=== PATIENT | female | born 1940 | race Caucasian/White ===

== ENCOUNTER 2020-11-02 22:19 | Inpatient (IN) | payer OTHER ==
[~2020-11-02] VITALS: Ht 152.4 cm; Wt 94.2 kg
[2020-11-02] MEDS ORDERED: IPRATROPIUM BROM 0.5 MG/2.5ML INH SOL NEB ONE (23:00)
[2020-11-02] MEDS ORDERED: ALBUTEROL SULF 2.5 MG/0.5ML(0.5%) NEB SOLN NEB ONE (23:00)
[2020-11-02] MEDS ORDERED: DexAMETHasone SOD PHOS 10MG/1ML VIAL INJ IV ONE (23:00)
[2020-11-02 23:38] LABS: Basophils # (auto) 0 10 ^3/uL (0-0.2); Basophils % (auto) 0.4 % (0.0-2.0); Eosinophils # (auto) 0 10 ^3/uL (0-0.8); Eosinophils % (auto) 0.4 % (0.0-7.0); Hematocrit 35.7 % (36.0-46.0); Hemoglobin 11.9 g/dL (12.2-16.2); Lymphocytes # (auto) 0.9 10 ^3/uL (0.4-5.4); Lymphocytes % (auto) 31.4 % (10.0-50.0); Mean Corpuscular Hemoglobin 28.2 pg (28.0-32.0); Mean Corpuscular Hgb Conc. 33.5 g/dL (32.0-36.0); Mean Corpuscular Volume 84.2 fL (80.0-100.0); Monocytes # (auto) 0.4 10 ^3/uL (0-1.3); Monocytes % (auto) 15.5 % (0.0-12.0); Neutrophils # (auto) 1.5 10 ^3/uL (1.6-8.6); Neutrophils % (auto) 52.3 % (37.0-80.0); Nucleated Red Blood Cells % 0.1 %; Platelet Count (auto) 107 10^3/uL (140-450); Red Blood Cells 4.23 10^6/uL (4.0-5.20); Red Cell Distribution Width 13.4 % (11.8-14.3); White Blood Cell 2.8 10^3/uL (4.4-10.8)
[2020-11-02 23:54] LABS: Albumin 3.5 g/dL (3.4-5.0); Anion Gap 5 (5-15); Calcium 8.4 mg/dL (8.5-10.1); Carbon Dioxide 29 mmol/L (21-32); Chloride 107 mmol/L (98-107); Glucose 113 mg/dL (74-106); Potassium 3.1 mmol/L (3.5-5.1); Sodium 141 mmol/L (136-145)
[2020-11-03 00:03] LABS: Alanine Aminotransferase 23 U/L (13-56); Alkaline Phosphatase 58 U/L (45-117); Aspartate Aminotransferase 25 U/L (15-37); Bilirubin, Total 0.5 mg/dL (0.2-1.0); GFR African American 78 mL/min; GFR Non-African American 64 mL/min; Total Protein 7.3 g/dL (6.4-8.2)
[2020-11-03 00:15] LABS: BUN/Creatinine Ratio 21.1; Blood Urea Nitrogen 19 mg/dL (7-18)
[2020-11-03] MEDS ORDERED: HYDROcodone-ACET 5/325MG TAB PO ONE (01:15)
[2020-11-03] MEDS ORDERED: IOHEXOL 300 MG/ML 100ML BOTTLE IJ ONE (01:41)
[2020-11-03] MEDS ORDERED: hydrALAZINE HCL 20 MG/ML VL IV ONE (03:00)
[2020-11-03] MEDS ORDERED: AZITHROMYCIN 500MG/ 250ML 250 ML IV ONE (03:15)
[2020-11-03] MEDS: levoFLOXacin 500MG 100 ML IV ONE ×2 (03:18→03:37)
[2020-11-03] MEDS ORDERED: POTASSIUM CHL 20 Meq TABLET PO ONE (04:30)
[2020-11-03] MEDS ORDERED: MORPHINE SULF INJ 2 MG/ML SYRINGE 1ML IV PRN (04:30)
[2020-11-03] MEDS ORDERED: hydrALAZINE HCL 20 MG/ML VL IV PRN (04:30)
[2020-11-03] MEDS ORDERED: DOCUSATE SOD 100 MG CAP PO PRN (04:30)
[2020-11-03] MEDS ORDERED: ACETAMINOPHEN 325 MG TAB PO PRN (04:30)
[2020-11-03] MEDS ORDERED: ONDANSETRON HCL 4 MG/2 ML VIAL IV PRN (04:30)
[2020-11-03] MEDS ORDERED: NITROGLYCERIN 0.4 MG SL TAB SL PRN (04:30)
[2020-11-03] MEDS: HYDROcodone-ACET 5/325MG TAB PO PRN (06:50)
[2020-11-03 07:11] LABS: Potassium 3.5 mmol/L (3.5-5.1)
[2020-11-03 07:16] LABS: BUN/Creatinine Ratio 18.2; Calcium 9.1 mg/dL (8.5-10.1)
[2020-11-03 07:17] LABS: Bilirubin, Total 0.5 mg/dL (0.2-1.0)
[2020-11-03 07:38] LABS: Hemoglobin 12.7 g/dL (12.2-16.2)
[2020-11-03 07:42] LABS: Mean Corpuscular Hgb Conc. 33.5 g/dL (32.0-36.0); Mean Corpuscular Volume 83.7 fL (80.0-100.0); Platelet Count (auto) 114 10^3/uL (140-450); Red Blood Cells 4.54 10^6/uL (4.0-5.20); Red Cell Distribution Width 13.5 % (11.8-14.3)
[2020-11-03 07:56] LABS: White Blood Cell 1.4 10^3/uL (4.4-10.8)
[2020-11-03 07:58] LABS: Basophils % (manual) 0 (0.0-2.0); Blast Cells 0; Eosinophils % (manual) 0 (0-7); Myelocytes % 0; Promyelocytes % 0
[2020-11-03] MEDS: DOXYCYCLINE 100MG/250ML 250 ML IV SCH ×2 (09:25→17:25)
[2020-11-03] MEDS: FAMOTIDINE (10MG/ML) 2ML VL IV SCH (10:06)
[2020-11-03] MEDS: MULTIPLE VITAMIN TAB PO SCH (10:06)
[2020-11-03] MEDS: DexAMETHasone SOD PHOS 10MG/1ML VIAL INJ IV SCH (10:06)
[2020-11-03] MEDS: ZINC SULFATE 220mg CAP or TAB PO SCH (10:06)
[2020-11-03] MEDS: amLODIPine BESYLATE 5 MG TAB PO SCH (10:06)
[2020-11-03] MEDS: ENOXAPARIN SOD 40 MG/0.4 ML SYRINGE SC SCH (10:07)
[2020-11-03] MEDS: ASCORBIC ACID 500 MG TAB PO SCH ×2 (10:07→21:28)
[2020-11-03] MEDS: HYDROcodone-ACET 10/325MG TAB PO PRN ×2 (12:35→22:12)
[2020-11-03 13:20] LABS: Band Neutrophils % (manual) 1; Lymphocytes % (manual) 28 (10.0-50.0); Metamyelocytes % 1; Monocytes % (manual) 3 (0-12); Reactive Lymphocytes 1
[2020-11-03 14:41] VITALS: BP 135/70
[2020-11-03 16:05] VITALS: BP 135/70
[2020-11-04] VITALS: BP 141/70
[2020-11-04] MEDS: DOXYCYCLINE 100MG/250ML 250 ML IV SCH ×2 (04:36→17:08)
[2020-11-04 06:29] LABS: Basophils # (auto) 0 10 ^3/uL (0-0.2); Basophils % (auto) 0.1 % (0.0-2.0); Eosinophils # (auto) 0 10 ^3/uL (0-0.8); Hematocrit 38.1 % (36.0-46.0); Hemoglobin 12.8 g/dL (12.2-16.2); Lymphocytes # (auto) 0.6 10 ^3/uL (0.4-5.4); Lymphocytes % (auto) 18.1 % (10.0-50.0); Mean Corpuscular Hemoglobin 28.2 pg (28.0-32.0); Mean Corpuscular Hgb Conc. 33.6 g/dL (32.0-36.0); Monocytes # (auto) 0.3 10 ^3/uL (0-1.3); Monocytes % (auto) 8.7 % (0.0-12.0); Neutrophils # (auto) 2.6 10 ^3/uL (1.6-8.6); Neutrophils % (auto) 73.1 % (37.0-80.0); Nucleated Red Blood Cells % 0.1 %; Platelet Count (auto) 135 10^3/uL (140-450); Red Blood Cells 4.53 10^6/uL (4.0-5.20); Red Cell Distribution Width 13.8 % (11.8-14.3); White Blood Cell 3.6 10^3/uL (4.4-10.8)
[2020-11-04 06:44] LABS: Potassium 3.4 mmol/L (3.5-5.1)
[2020-11-04 06:55] LABS: Albumin 3.6 g/dL (3.4-5.0); BUN/Creatinine Ratio 15.9; Bilirubin, Total 0.5 mg/dL (0.2-1.0); Total Protein 7.8 g/dL (6.4-8.2)
[2020-11-04 08:00] VITALS: BP 142/76
[2020-11-04] MEDS: DexAMETHasone SOD PHOS 10MG/1ML VIAL INJ IV SCH (10:17)
[2020-11-04] MEDS: MULTIPLE VITAMIN TAB PO SCH (10:19)
[2020-11-04] MEDS: FAMOTIDINE (10MG/ML) 2ML VL IV SCH (10:19)
[2020-11-04] MEDS: ZINC SULFATE 220mg CAP or TAB PO SCH (10:19)
[2020-11-04] MEDS: ASCORBIC ACID 500 MG TAB PO SCH ×2 (10:20→21:44)
[2020-11-04] MEDS: amLODIPine BESYLATE 5 MG TAB PO SCH (10:20)
[2020-11-04] MEDS: CHOLECALCIFEROL (VITD3) 2,000 UNIT CAP/TAB PO SCH (10:20)
[2020-11-04] MEDS: ENOXAPARIN SOD 40 MG/0.4 ML SYRINGE SC SCH (10:21)
[2020-11-04] MEDS: HYDROcodone-ACET 10/325MG TAB PO PRN ×2 (12:40→21:00)
[2020-11-04 15:56] VITALS: BP 115/80
[2020-11-04] MEDS: ALBUTEROL SULF HFA 90MCG INH 200DOSE IN SCH (19:04)
[2020-11-05] MEDS: DOXYCYCLINE 100MG/250ML 250 ML IV SCH ×2 (04:38→16:30)
[2020-11-05 07:49] VITALS: BP 135/69
[2020-11-05 08:00] VITALS: BP 135/69
[2020-11-05] MEDS: MULTIPLE VITAMIN TAB PO SCH (09:35)
[2020-11-05] MEDS: ASCORBIC ACID 500 MG TAB PO SCH ×2 (09:35→21:52)
[2020-11-05] MEDS: CHOLECALCIFEROL (VITD3) 2,000 UNIT CAP/TAB PO SCH (09:36)
[2020-11-05] MEDS: ENOXAPARIN SOD 40 MG/0.4 ML SYRINGE SC SCH (09:36)
[2020-11-05] MEDS: ZINC SULFATE 220mg CAP or TAB PO SCH (09:38)
[2020-11-05] MEDS: FAMOTIDINE (10MG/ML) 2ML VL IV SCH (09:38)
[2020-11-05] MEDS: DexAMETHasone SOD PHOS 10MG/1ML VIAL INJ IV SCH (09:38)
[2020-11-05] MEDS: amLODIPine BESYLATE 5 MG TAB PO SCH (09:38)
[2020-11-05] MEDS: HYDROcodone-ACET 10/325MG TAB PO PRN ×2 (11:49→19:37)
[2020-11-05] MEDS ORDERED: IOHEXOL 350 MG/ML 100ML IJ ONE (15:21)
[2020-11-05 16:00] VITALS: BP 112/73
[2020-11-05 20:00] VITALS: BP 125/71
[2020-11-05] MEDS: ALBUTEROL SULF HFA 90MCG INH 200DOSE IN SCH (20:02)
[2020-11-06 00:03] VITALS: BP 125/71
[2020-11-06] MEDS: DOXYCYCLINE 100MG/250ML 250 ML IV SCH ×2 (04:19→16:21)
[2020-11-06] MEDS: ALBUTEROL SULF HFA 90MCG INH 200DOSE IN SCH ×2 (06:10→19:08)
[2020-11-06 07:08] LABS: Hematocrit 39.1 % (36.0-46.0); Hemoglobin 13.2 g/dL (12.2-16.2); Mean Corpuscular Hemoglobin 28.1 pg (28.0-32.0); Mean Corpuscular Hgb Conc. 33.7 g/dL (32.0-36.0); Mean Corpuscular Volume 83.3 fL (80.0-100.0); Platelet Count (auto) 164 10^3/uL (140-450); Red Blood Cells 4.69 10^6/uL (4.0-5.20); Red Cell Distribution Width 13.8 % (11.8-14.3); White Blood Cell 5.8 10^3/uL (4.4-10.8)
[2020-11-06 07:17] LABS: Band Neutrophils % (manual) 0; Basophils % (manual) 0 (0.0-2.0); Eosinophils % (manual) 0 (0-7); Metamyelocytes % 0; Promyelocytes % 0
[2020-11-06 07:18] LABS: Blast Cells 0; Reactive Lymphocytes 0
[2020-11-06 07:26] LABS: BUN/Creatinine Ratio 24.1; Calcium 9.5 mg/dL (8.5-10.1); Magnesium 2.1 mg/dL (1.6-2.6); Potassium 3.7 mmol/L (3.5-5.1)
[2020-11-06 08:00] VITALS: BP 112/64
[2020-11-06 08:22] VITALS: BP 112/64
[2020-11-06 08:28] LABS: Lymphocytes % (manual) 19 (10.0-50.0); Monocytes % (manual) 2 (0-12); Myelocytes % 3
[2020-11-06] MEDS: HYDROcodone-ACET 10/325MG TAB PO PRN (08:41)
[2020-11-06] MEDS: DexAMETHasone SOD PHOS 10MG/1ML VIAL INJ IV SCH (09:01)
[2020-11-06] MEDS: ZINC SULFATE 220mg CAP or TAB PO SCH (09:02)
[2020-11-06] MEDS: FAMOTIDINE (10MG/ML) 2ML VL IV SCH (09:02)
[2020-11-06] MEDS: amLODIPine BESYLATE 5 MG TAB PO SCH (09:03)
[2020-11-06] MEDS: ENOXAPARIN SOD 40 MG/0.4 ML SYRINGE SC SCH (09:04)
[2020-11-06] MEDS: CHOLECALCIFEROL (VITD3) 2,000 UNIT CAP/TAB PO SCH (09:04)
[2020-11-06] MEDS: ASCORBIC ACID 500 MG TAB PO SCH ×2 (09:05→23:49)
[2020-11-06] MEDS: MULTIPLE VITAMIN TAB PO SCH (09:05)
[2020-11-06 16:00] VITALS: BP 127/74
[2020-11-06] MEDS: HYDROcodone-ACET 5/325MG TAB PO PRN (16:30)
[2020-11-06 20:00] VITALS: BP 138/65
[2020-11-07] VITALS: BP 138/65
[2020-11-07] MEDS: DOXYCYCLINE 100MG/250ML 250 ML IV SCH ×2 (04:49→16:30)
[2020-11-07 08:00] VITALS: BP 141/83
[2020-11-07 08:30] VITALS: BP 141/83
[2020-11-07] MEDS: DexAMETHasone SOD PHOS 10MG/1ML VIAL INJ IV SCH (08:36)
[2020-11-07] MEDS: FAMOTIDINE (10MG/ML) 2ML VL IV SCH (08:36)
[2020-11-07] MEDS: ASCORBIC ACID 500 MG TAB PO SCH (08:38)
[2020-11-07] MEDS: MULTIPLE VITAMIN TAB PO SCH (08:38)
[2020-11-07] MEDS: amLODIPine BESYLATE 5 MG TAB PO SCH (08:38)
[2020-11-07] MEDS: ZINC SULFATE 220mg CAP or TAB PO SCH (08:40)
[2020-11-07] MEDS: ENOXAPARIN SOD 40 MG/0.4 ML SYRINGE SC SCH (08:40)
[2020-11-07] MEDS: CHOLECALCIFEROL (VITD3) 2,000 UNIT CAP/TAB PO SCH (08:51)
[2020-11-07] MEDS ORDERED: guaiFENesin-CODEINE Liq 5 ML UD PO ONE (10:15)
[2020-11-07] MEDS: HYDROcodone-ACET 5/325MG TAB PO PRN (13:03)
[2020-11-07 14:27] VITALS: BP 120/59
[2020-11-07 16:00] VITALS: BP 120/72
== END 2020-11-07 16:33 | disposition home or self-care (01) | DRG 177 ==
LOC: ER 22:19 → EDBD 22:19 → TELE 22:20 → TELE-WESTW 11-03 14:20
PROVIDERS: ADMIT Nurse Practitioner Family; ATTEND Internal Medicine
DX: U07.1 COVID-19 (principal); J12.82 Pneumonia due to coronavirus disease 2019; J96.01 Acute respiratory failure with hypoxia; J44.0 Chronic obstructive pulmonary disease with (acute) lower respiratory infection; Z68.41 Body mass index [BMI] 40.0-44.9, adult; J98.11 Atelectasis; D69.6 Thrombocytopenia, unspecified; M54.6 Pain in thoracic spine; D72.819 Decreased white blood cell count, unspecified; E66.01 Morbid (severe) obesity due to excess calories; I10 Essential (primary) hypertension; E87.6 Hypokalemia; D73.4 Cyst of spleen; Z80.7 Family history of other malignant neoplasms of lymphoid, hematopoietic and related tissues; Z82.49 Family history of ischemic heart disease and other diseases of the circulatory system; Z87.891 Personal history of nicotine dependence; Z90.49 Acquired absence of other specified parts of digestive tract; Z88.0 Allergy status to penicillin; Z79.899 Other long term (current) drug therapy
CPT/HCPCS: 36415; 71045; 71260; 71275; 80048; 80053; 83036; 83605; 83735; 84484; 85007; 85025; 85027; 87040; 87426; 93005; 93970; 94640; 96365; 96375; 96376; G0378; J1100; J1956; J3490

== ENCOUNTER 2025-08-15 10:49 | Inpatient (IN) | payer OTHER ==
[~2025-08-15] VITALS: Ht 154.9 cm; Wt 191.6 kg
[~2025-08-15 10:49] MED LIST: ASPI1TAB20 PO; ATOR10TA PO; BETH50TA2 PO; CHOL25CH3 PO; CRAN125T PO; CYAN-17 PO; LOSA-533 PO; MAGN84TA4 PO; MIDAZOLAM HCL 2MG/2ML 2ml VIAL (1mg/ml) ONE; OMEP20TA PO; PROPOFOL 10 MG/ML 20 ML IV ONE; RIVSET PO; fentaNYL CITRATE 100 MCG/2 ML VL ONE
[2025-08-15] MEDS ORDERED: BUPIVACAINE/DEXTROSE MPF 0.75% 2 ML AMP IT ONE (11:14)
[2025-08-15] MEDS: ceFAZolin 2 GM/D5W50ml 50 ML IV ONE (11:31)
[2025-08-15] MEDS: CEFEPIME 1GM/50ML 50 ML IV ONE (11:40)
[2025-08-15] MEDS: TRANEXAMIC ACID 20 ML ONE (11:50)
[2025-08-15] MEDS: VANCOMYCIN HCL 1000 MG VL ONE (12:09)
--- NOTE | 2025-08-15 14:17 | DVHOP2 ---
Operative Report - 2 Report Details Date: 08/15/25 Preop Diagnosis: Right knee degenerative arthritis Postop Diagnosis: Right knee degenerative arthritis Surgeon: Jamir Santiago MD Channel Specialist: Vicky ACUNA Anesthesiologist: Amanda Anesthesia: Regional Drains: Elle closed wound suction Implant: DonJoy size six femur PS, size five tibial base plate, size 10 poly, size 29 patella Consent: The patient was informed of the risks and benefits of the procedure. These include but are not limited to complications of anesthesia, postoperative infection, incomplete relief of symptoms, recurrence of symptoms, damage to blood vessels, nerves and tendons, deep venous thrombosis, pulmonary embolism and possible need for repeat surgery in the future. Complications: None Estimated Blood Loss: 150 cc Fluids: See anesthesia record Findings: Severe three compartment osteoarthritis with denuded cartilage and eburnated bone, osteophytes Indications for Surgery: Right knee degenerative arthritis with severe pain and functional impairment de spite nonoperative management Name of Procedure Performed Right total knee arthroplasty Procedure Details Procedure Details: The patient was brought to the operating room and placed on the table in the supine position after being given spinal anesthetic with adequate analgesia obtained. Surgical timeout was performed verifying patient, laterality and procedure Preop patient received IV cefepime IV Ancef and IV tranexamic acid. Tourniquet was applied to the lower extremity. Lower extremity was prepped and draped in sterile fashion. Extremity was elevated, exsanguinated Esmarch, and tourniquet inflated. Midline incision was made followed by medial arthrotomy. I exposed the anterior medial and lateral tibial plateau and the anterior distal femur. Bovie and aqua mantis were used for hemostasis. I excised the anterior meniscal tissue with Bovie. I excised a portion of the fat pad with Bovie. The patella was everted and the knee flexed. I drilled the distal femur and suctioned the hole to reduce the risk of fat emboli. I inserted intramedullary guide with 5 degree valgus setting. I pinned the distal femoral cutting block anteriorly. Intramedullary lisa was removed. Distal femoral cut was made and the block removed. I brought my attention to the tibia setting up the external cutting jig for the tibia paying attention to slope, rotation and varus valgus alignment. I set the depth and pinned the block. I used the external alignment lisa to aid in checking alignment. Bone cut was made and bone removed releasing soft tissue attachments with Bovie. Cutting block removed. I then checked the extension gap and deemed adequate and removed the femur and tibia pins. I flexed the knee and applied the femoral sizing guide to the femur. I checked the size and external rotation setting at 90 degrees to Whitesides line and checking the epicondylar axis. I drilled the holes then removed the sizing guide and pin. I then tapped on the 4 in 1 cutting block and checked with the dayami wing anteriorly to make sure that I would not notch then pinned the block. Cuts were made and the block and pins were removed. Bone was removed with curved osteotome. I used a rongeur to remove any remaining osteophytes at the femur and tibia. I then used a lamina carton making machinist to open up the back alternating between the medial and lateral side. Any remaining meniscal tissue was excised with scalpel. I used curved osteotome, curette and rongeur to remove any posterior osteophytes. I prophylactically coagulated with aqua mantis. I then tapped on the template for the box cut and pinned it. Box cut was made and bone removed. Template and pin removed. I then tapped on the femoral trial. I then brought my attention back to the tibia sizing it. I used the external alignment lisa to make sure that rotation and alignment were good. I made a Bovie gilberto at the tibial tray gilberto identifying rotation for later use. I tried various tibial polytrials. [I then brought my attention to the patella. I sequentially dissected soft tissue with Bovie. I checked the thickness with caliper. I set the appropriate depth of cut on the cutting guide. I attached the cutting guide made my cut. I then sized the patella and made my drill holes. I then placed the patella trial with appropriate depth based on overall precut thickness. ] The patella tracked nicely without thumb pressure. I removed the trials. I pinned the tray and used the reamer and keel punch. The implants were brought into the field while bone preparation was started. I used both normal saline irrigation and the CarboJet to prepare the bone. I used the bone from the cuts to graft the femoral tunnel. Once cement was ready I applied cement to the tibial implant and tibial bone tapped it on and removed excess cement in usual fashion. I began to place the femoral implant and noted it was for a left side so it was put back on the back table cement was cleared off of the bone. The rep did not have any backups in the hospital so he had to go back to his warehouse to obtain a right size six femur. During this time I released the tourniquet and achieved hemostasis with aqua Mantis. I applied dilute Betadine to the wound and covered it while waiting for the rep to the returned. Once I had the appropriate implant I again irrigated the bone copiously with normal saline Pulsavac lavage as well as using the Carbo jet. I applied cement to the femoral bone and femoral implant and tapped it on removing excess cement in usual fashion. I inserted the trial polyethylene. I applied cement to the patella button as well as the patella bone and held it in place with the pressurization device. I irrigated the wound with bacisurge antibacterial irrigant. Once cement cured, I checked stability and range of motion as well as patella tracking. I inserted the polyethylene with size based on trialing and again checked stability. I used a 2 grams of vancomycin half of which was placed deep and half superficial. I repaired the extensor mechanism with the knee in flexion with #1 Ethibond interrupted [id number]. Deep subcutaneous tissue was closed with 0 Vicryl. Superficial subcutaneous tissue was closed with 2-0 vicryl interrupted. Skin was closed with jesús. I then applied the [elle closed wound suction]. Patient tolerated the procedure well and was brought to recovery room in stable condition. Condition Stable Disposition Still a Patient JAMIR SANTIAGO MD Aug 15, 2025 14:17
[2025-08-15 14:20] VITALS: PULSE 74; RESP 23; O2SAT 94
[2025-08-15 14:30] VITALS: PULSE 70; RESP 16; O2SAT 94; O2SAT 98
[2025-08-15] MEDS ORDERED: HYDROmorphone HCL 2 MG/ML VL/or syr IV PRN (14:30)
[2025-08-15] MEDS ORDERED: ACETAMINOPHEN IV 1000 MG/100ML (10MG/ML) IV PRN (14:30)
[2025-08-15] MEDS ORDERED: ONDANSETRON HCL 4 MG/2 ML VIAL IV PRN (14:30)
[2025-08-15] MEDS: BUPIVACAINE 0.25% INJ 50ML VIAL ONE (15:09)
[2025-08-15] MEDS: ACETAMINOPHEN IV 100 ML IV ONE (15:09)
[2025-08-15] MEDS: ROPIVACAINE 0.5% (5MG/ML) 20ML AMPULE IJ ONE (15:09)
[2025-08-15] MEDS: ACETAMINOPHEN IV 1000 MG/100ML (10MG/ML) IV PRN (15:09)
--- NOTE | 2025-08-15 15:35 | DVH ---
CLINICAL INDICATION: postop TECHNIQUE: 3 radiographic views of the right knee were obtained. Comparison: XR KNEE RIGHT 3 VIEW on DOS: 07/31/25, CR KNEE RIGHT 3 VIEW on DOS: 04/25/24 FINDINGS/IMPRESSION: Total right knee arthroplasty in place skin closure jesús noted anteriorly.
[2025-08-15 16:15] VITALS: PULSE 76; RESP 16; O2SAT 98
[2025-08-15 16:36] VITALS: BP 125/67; PULSE 71; RESP 16; TEMP 98.2; O2SAT 95
[2025-08-15 16:38] VITALS: PULSE 95; RESP 18; O2SAT 95
[2025-08-15] MEDS: D5W/LACTATED RINGERS 1,000 ML IV SCH (17:56)
[2025-08-15] MEDS: ACETAMINOPHEN 325 MG TAB PO SCH (18:00)
[2025-08-15] MEDS: ACETAMINOPHEN 325 MG TAB PO PRN (20:05)
[2025-08-15 21:00] VITALS: BP 140/72; PULSE 88; RESP 18; TEMP 97.6; O2SAT 96
[2025-08-15] MEDS: ceFAZolin 2 GM/D5W50ml 50 ML IV SCH (21:58)
[2025-08-15] MEDS: PREGABALIN 25 MG CAP PO SCH (21:58)
[2025-08-15] MEDS: LOSARTAN POTASSIUM 25 MG TAB PO SCH (21:59)
[2025-08-16] VITALS (7 sets, daily range): BP systolic 109–134; BP diastolic 56–78; PULSE 87–108; RESP 18; TEMP 97.8–99.1; O2SAT 90–94
[2025-08-16] MEDS: PANTOPRAZOLE 40 MG TAB PO SCH (05:26)
[2025-08-16 06:59] LABS: Chloride 100 mmol/L (98-107); Potassium 4.1 mmol/L (3.5-5.1); Sodium 138 mmol/L (136-145)
[2025-08-16 07:00] LABS: Anion Gap 9 (5-15); Carbon Dioxide 29 mmol/L (20-31)
[2025-08-16 07:01] LABS: Calcium 9.1 mg/dL (8.7-10.4)
[2025-08-16 07:04] LABS: Hematocrit 30.7 % (36.0-46.0); Hemoglobin 10.1 g/dL (12.2-16.2); Mean Corpuscular Hemoglobin 27.6 pg (28.0-32.0); Mean Corpuscular Volume 83.8 fL (80.0-100.0); Nucleated Red Blood Cells % 0.0 %
[2025-08-16 07:06] LABS: BUN/Creatinine Ratio 20.8 (10.0-20.0); Blood Urea Nitrogen 20 mg/dL (9-23)
[2025-08-16 07:07] LABS: Glucose 131 mg/dL (74-106)
[2025-08-16 08:12] LABS: Giant Platelets Few
[2025-08-16] MEDS: RIVAROXABAN 10 MG TAB PO SCH (08:51)
--- NOTE | 2025-08-16 13:00 | DVHINCON2 ---
Date of service: Aug 16, 2025 Reason for Consultation Postop medical management while she is in the hospital. History of Present Illness This 85-year-old female with a right knee osteoarthritis and hypertension and admitted by orthopedic surgeon and underwent successful right knee arthroplasty surgery. Medical management consultation requested while she is in the hospital. Patient's chart is reviewed and medications reconciled. Today is po stop day one. Says she feels better. Pain is tolerable with the pain medications. Participated with the physical therapy today. Past Medical History Hypertension, osteoarthritis, dyslipidemia, obesity Past Surgical History Knee surgery Family History: Cardiovascular disease G8 FATHER, FH: lymphoma G8 SISTER Allergies: Coded Allergies: Ciprofloxacin (Unverified Allergy, Unknown, hives, 08/14/25) Penicillins (Verified Allergy, Unknown, 11/03/20) Home Meds Reported Medications Cranberry Extract (CRANBERRY) 125 Mg Tab, PO, TAB 08/14/25 Magnesium Lactate (Mag-Tab Sr) 84 Mg Tab, PO, TAB 08/14/25 Cyanocobalamin (B12) 1,000 Mcg Cap, PO, CAP 08/14/25 Cholecalciferol (D3) 25 Mcg Chw, PO, TAB.CHEW 08/14/25 Aspirin (Aspir-81) 81 Mg Tab, PO, TAB 08/14/25 Bethanechol Chloride (Bethanechol Chloride) 50 Mg Tab, PO, TAB 08/14/25 Omeprazole (Gnp Omeprazole) 20 Mg Tab, PO, TAB 08/14/25 Atorvastatin Calcium (Lipitor) 10 Mg Tab, PO, TAB 08/14/25 Rivaroxaban (Xarelto) 10 Mg Tab, PO, TAB 08/14/25 Losartan Potassium (Losartan Potassium) 25 Mg Tab, PO, TAB 08/14/25 Current Medications Current Medications Medications (Trade) Dose Ordered Sig/Penny Route PRN Reason Start Time Stop Time Status Last Admin Losartan Potassium (Cozaar Tablet) 25 mg BID PO 08/15/25 22:00 08/16/25 08:52 Pantoprazole Sodium (Protonix Tablet) 40 mg DAILY@0600 PO 08/16/25 06:00 08/16/25 05:26 Dextrose/Lactated Ringer's 1,000 ml @ 100 mls/hr Q10H IV 08/15/25 14:15 08/16/25 12:58 DC 08/16/25 05:30 Acetaminophen (Tylenol Tablet) 650 mg Q4HP PRN PO MILD PAIN (1-3 PAIN SCALE) 08/15/25 14:15 08/15/25 20:05 Cefazolin Sodium/ Dextrose 50 ml @ 50 mls/hr Q8HR IV 08/15/25 22:00 08/16/25 06:59 DC 08/16/25 05:26 Acetaminophen (Tylenol Tablet) 650 mg Q6HR PO 08/15/25 18:00 08/16/25 12:23 Pregabalin (Lyrica Capsule) 50 mg BID PO 08/15/25 22:00 08/16/25 10:31 Oxycodone HCl 5 mg Q4HP PRN PO MODERATE PAIN (4-6 PAIN SCALE) 08/15/25 14:15 Oxycodone HCl 10 mg Q4HP PRN PO SEVERE PAIN (7-10 PAIN SCALE) 08/15/25 15:11 08/16/25 08:53 Rivaroxaban (Xarelto Tablet) 10 mg DAILY PO 08/16/25 10:00 08/16/25 08:51 Acetaminophen (Ofirmev) 1,000 mg [id number] PRN IV PAIN SCALE 1-3 OR TEMP>100.4 08/15/25 14:30 08/15/25 14:56 DC Ondansetron HCl (Zofran) 4 mg ONCE PRN IV NAUSEA / VOMITING 08/15/25 14:30 08/15/25 14:57 DC Hydromorphone HCl (Dilaudid Injection) 0.5 mg Q10M PRN IV SEVERE PAIN (7-10 PAIN SCALE) 08/15/25 14:30 08/15/25 15:11 DC Acetaminophen (Ofirmev) 1,000 mg [id number] PRN IV PAIN SCALE 1-3 OR TEMP>100.4 08/15/25 15:15 08/15/25 15:15 DC 08/15/25 15:09 Sennosides (Senokot Tablet) 8.6 mg HS PO 08/16/25 22:00 UNV Lactulose 30 ml Q6HPRN PRN PO FOR CONSTIPATION 08/16/25 13:00 UNV Review of Systems No complaints of chest pain shortness for breath dizziness lightheadedness. Other review of systems reviewed normal. Vital Signs Vital Signs Date Time Temp Pulse Resp B/P (MAP) Pulse Ox O2 Delivery O2 Flow Rate FiO2 08/16/25 08:52 109/56 08/16/25 08:48 98.1 95 18 92 98.1 08/16/25 08:00 Room Air* 0 21 Physical Exam Pleasant female alert awake oriented x3. Comfortable in bed without distress. Daughter at bedside. HEENT neck supple no JVD pupils equal round reactive to light. heart regular rate and rhythm S1 plus S2 without murmurs. Lungs fair air movement without rales or wheezes. Abdomen obese soft positive bowel sounds. Extremities no edema positive pulses. Labs/Diagnostic Data Labs Test 08/16/25 05:18 Range/Units White Blood Count 6.3 4.4-10.8 10^3/uL Red Blood Count 3.66 L 4.0-5.20 10^6/uL Hemoglobin 10.1 L 12.2-16.2 g/dL Hematocrit 30.7 L 36.0-46.0 % Mean Corpuscular Volume 83.8 80.0-100.0 fL Mean Corpuscular Hemoglobin 27.6 L 28.0-32.0 pg Mean Corpuscular Hemoglobin Concent 32.9 32.0-36.0 g/dL Red Cell Distribution Width 14.8 H 11.8-14.3 % Platelet Count 136 L 140-450 10^3/uL Mean Platelet Volume 11.1 H 6.9-10.8 fL Neutrophils (%) (Auto) 70.9 37.0-80.0 % Lymphocytes (%) (Auto) 15.5 10.0-50.0 % Monocytes (%) (Auto) 13.4 H 0.0-12.0 % Eosinophils (%) (Auto) 0.1 0.0-7.0 % Basophils (%) (Auto) 0.1 0.0-2.0 % Neutrophils # (Auto) 4.5 1.6-8.6 10 ^3/uL Lymphocytes # (Auto) 1.0 0.4-5.4 10 ^3/uL Monocytes # (Auto) 0.8 0-1.3 10 ^3/uL Eosinophils # (Auto) 0 0-0.8 10 ^3/uL Basophils # (Auto) 0 0-0.2 10 ^3/uL Nucleated Red Blood Cells 0.0 % Platelet Estimate Adequate Large Platelets Moderate Giant Platelets Few Sodium Level 138 136-145 mmol/L Potassium Level 4.1 3.5-5.1 mmol/L Chloride Level 100 98-107 mmol/L Carbon Dioxide Level 29 20-31 mmol/L Anion Gap 9 5-15 Blood Urea Nitrogen 20 9-23 mg/dL Creatinine 0.96 0.550-1.02 mg/dL Glomerular Filtration Rate Calc 59 >90 mL/min BUN/Creatinine Ratio 20.8 H 10.0-20.0 Serum Glucose 131 H 74-106 mg/dL Calcium Level 9.1 8.7-10.4 mg/dL Assessment Right knee degenerative arthritis Status post Right total knee arthroplasty Obesity with a BMI 32 Hypertension Patient is clinically stable. She participated with physical therapy today. Pain is tolerable. Encouraged incentive spirometry. I will resume her home medications losartan once daily and hold if blood pressure less than 100. Laxatives while she is on narcotics. Social Service consultation to arrange for home DME and physical therapy. Follow the labs. Otherwise continue rest of supportive care and treatment. Follow clinical management per clinical course. Discussed with the patient as well as nurse regarding her care plan at bedside. Problems(with codes): (1) Back pain Plan discussed with: Patient JEANINE LINTON MD Aug 16, 2025 13:00
[2025-08-16] MEDS: LACTULOSE 20Gm/30ML SOLN PO PRN (14:06)
--- NOTE | 2025-08-16 15:31 | DVHPN2 ---
Progress Note - Dictate Date Seen: Aug 16, 2025 Medical Necessity Reason Pt with a Central, PICC or Fol: No Subjective Patient was lying comfortably in bed during my evaluation reports some postoperative knee pain that is somewhat improved with the help of pain medication. Patient reports that she was able to get up and walk with the help of physical therapy and her walker but was only able to take a few steps in her room and back to her bed due to the pain. Patient was otherwise feeling well denying any other complaints or concerns during my evaluation. vital signs Vital Sign Date Time Temp Pulse Resp B/P (MAP) Pulse Ox O2 Delivery O2 Flow Rate FiO2 08/16/25 13:33 98.5 95 18 115/59 (77) 90 98.5 08/16/25 08:00 Room Air* 0 21 Total Intake and Output 08/15/25 08/15/25 08/16/25 14:59 22:59 06:59 Intake Total 220 ml 150 ml 1100 ml Balance 220 ml 150 ml 1100 ml medications Current Medications Medications Dose Ordered Sig/Penny Route Start Time Stop Time Status Last Admin Dose Admin Pantoprazole Sodium 40 mg DAILY@0600 PO 08/16/25 06:00 08/16/25 05:26 40 MG Acetaminophen 650 mg Q4HP PRN PO 08/15/25 14:15 08/15/25 20:05 650 MG Acetaminophen 650 mg Q6HR PO 08/15/25 18:00 08/16/25 12:23 650 MG Pregabalin 50 mg BID PO 08/15/25 22:00 08/16/25 10:31 50 MG Oxycodone HCl 5 mg Q4HP PRN PO 08/15/25 14:15 Oxycodone HCl 10 mg Q4HP PRN PO 08/15/25 15:11 08/16/25 08:53 10 MG Rivaroxaban 10 mg DAILY PO 08/16/25 10:00 08/16/25 08:51 10 MG Sennosides 8.6 mg HS PO 08/16/25 22:00 Lactulose 30 ml Q6HPRN PRN PO 08/16/25 13:00 08/16/25 14:06 30 ML Losartan Potassium 25 mg QAM PO 08/17/25 07:00 objective A&O x4 in no acute distress Knee range of motion grossly limited with pain on movement Rolly dressing clean, dry, intact, and maintaining suction No distal edema or calf tenderness to palpation Neurovascularly intact with cap refill less than 2 seconds laboratory and microbiology Laboratory Tests 08/16/25 05:18 Test 08/16/25 05:18 Range/Units Serum Glucose 131 H 74-106 mg/dL Assessment/Plan We will continue monitoring patient and advised her to continue weight-bearing as tolerated with the assistance of a walker and physical therapy. We will reconvene with the patient tomorrow if she remains medically stable and is able to ambulate with the assistance of a walker and able to get around the nurses station and back to her bed may consider her for discharge home tomorrow. Advised the patient to maintain her dressings clean, dry, intact, and maintaining suction. Plan discussed with: Patient, Daughter TOBARLIVIASARIKA ACUNA Aug 16, 2025 15:31
[2025-08-16 22:01] LABS: Urine Protein, UAD Negative (Negative)
[2025-08-16] MEDS: SENNA 8.6 MG TAB PO SCH (22:11)
[2025-08-17] VITALS (7 sets, daily range): BP systolic 102–135; BP diastolic 41–67; PULSE 51–94; RESP 16–19; TEMP 98.1–100.3; O2SAT 90–100
[2025-08-17 06:26] LABS: Hematocrit 30.7 % (36.0-46.0); Hemoglobin 10.1 g/dL (12.2-16.2); Mean Corpuscular Hemoglobin 27.7 pg (28.0-32.0); Mean Corpuscular Volume 83.7 fL (80.0-100.0)
[2025-08-17] MEDS: LOSARTAN POTASSIUM 25 MG TAB PO SCH (06:34)
[2025-08-17 06:51] LABS: Calcium 10.2 mg/dL (8.7-10.4); Chloride 103 mmol/L (98-107); Potassium 4.4 mmol/L (3.5-5.1); Sodium 142 mmol/L (136-145)
[2025-08-17 06:52] LABS: Anion Gap 9 (5-15); Carbon Dioxide 30 mmol/L (20-31)
[2025-08-17 06:57] LABS: BUN/Creatinine Ratio 15.2 (10.0-20.0); Blood Urea Nitrogen 12 mg/dL (9-23); Glucose 105 mg/dL (74-106)
[2025-08-17 09:22] LABS: Total Cells Counted 100.0 (100)
--- NOTE | 2025-08-17 15:30 | DVHPN2 ---
Progress Note - Dictate Date Seen: Aug 17, 2025 Medical Necessity Reason Pt with a Central, PICC or Fol: No Subjective Patient was lying comfortably in bed during my evaluation and reports some continued postoperative knee pain that is somewhat improved with the help of pain medication. Patient reports that she was able to get up and walk with the help of physical therapy and her walker but continues to only be able to take a few steps in her room and back to her bed due to the pain. Patient was otherwise feeling well denying any other complaints or concerns during my evaluation. vital signs Vital Sign Date Time Temp Pulse Resp B/P (MAP) Pulse Ox O2 Delivery O2 Flow Rate FiO2 08/17/25 13:00 100.0 51 18 126/66 (86) 98 100.0 08/17/25 08:00 Room Air* 0 21 Total Intake and Output 08/16/25 08/16/25 08/17/25 15:00 23:00 07:00 Intake Total 1200 ml 170 ml Balance 1200 ml 170 ml medications Current Medications Medications Dose Ordered Sig/Penny Route Start Time Stop Time Status Last Admin Dose Admin Pantoprazole Sodium 40 mg DAILY@0600 PO 08/16/25 06:00 08/17/25 06:35 40 MG Acetaminophen 650 mg Q4HP PRN PO 08/15/25 14:15 08/15/25 20:05 650 MG Acetaminophen 650 mg Q6HR PO 08/15/25 18:00 08/17/25 06:35 650 MG Pregabalin 50 mg BID PO 08/15/25 22:00 08/16/25 22:11 50 MG Oxycodone HCl 5 mg Q4HP PRN PO 08/15/25 14:15 Oxycodone HCl 10 mg Q4HP PRN PO 08/15/25 15:11 08/17/25 09:17 10 MG Rivaroxaban 10 mg DAILY PO 08/16/25 10:00 08/17/25 09:18 10 MG Sennosides 8.6 mg HS PO 08/16/25 22:00 08/16/25 22:11 8.6 MG Lactulose 30 ml Q6HPRN PRN PO 08/16/25 13:00 08/17/25 06:34 30 ML Losartan Potassium 25 mg QAM PO 08/17/25 07:00 08/17/25 06:34 25 MG objective A&O x4 in no acute distress Knee range of motion grossly limited with pain on movement Rolly dressing clean, dry, intact, and maintaining suction No distal edema or calf tenderness to palpation Neurovascularly intact with cap refill less than 2 seconds laboratory and microbiology Laboratory Tests 08/17/25 05:23 Test 08/17/25 05:23 Range/Units Serum Glucose 105 74-106 mg/dL Assessment/Plan We will continue monitoring patient and advised her to continue weight-bearing as tolerated with the assistance of a walker and physical therapy. We will reconvene with the patient tomorrow if she remains medically stable and is able to ambulate with the assistance of a walker and able to get around the nurses station and back to her bed may consider her for discharge home tomorrow. Patient refused a transfer to a alf facility as she reports having gone to one for a previous knee replacement and had a very bad experience and would like to go home instead. Advised the patient to maintain her dressings clean, dry, intact, and maintaining suction. I also advised the patient to schedule her 1st postoperative evaluation with our office in 10-14 days. Patient understood and agreed. Plan discussed with: Patient JUAN LUIS TOBAR Aug 17, 2025 15:30
[2025-08-18] VITALS (8 sets, daily range): BP systolic 119–150; BP diastolic 55–91; PULSE 64–105; RESP 15–19; TEMP 97.8–99.4; O2SAT 92–96
--- NOTE | 2025-08-18 07:32 | DVHDS2 ---
Discharge Summary Date of Admission Aug 15, 2025 at 14:07 Date of Discharge: Aug 18, 2025 Labs/Diagnostic Data: Laboratory Results Test 08/17/25 05:23 08/16/25 21:30 08/16/25 05:18 White Blood Count 6.6 10^3/uL (4.4-10.8) Red Blood Count 3.67 10^6/uL (4.0-5.20) Hemoglobin 10.1 g/dL (12.2-16.2) Hematocrit 30.7 % (36.0-46.0) Mean Corpuscular Volume 83.7 fL (80.0-100.0) Mean Corpuscular Hemoglobin 27.7 pg (28.0-32.0) Mean Corpuscular Hemoglobin Concent 33.0 g/dL (32.0-36.0) Red Cell Distribution Width 14.7 % (11.8-14.3) Platelet Count 91 10^3/uL (140-450) Mean Platelet Volume 11.9 fL (6.9-10.8) Neutrophils (%) (Auto) % (37.0-80.0) Lymphocytes (%) (Auto) % (10.0-50.0) Monocytes (%) (Auto) % (0.0-12.0) Basophils (%) (Auto) % (0.0-2.0) Neutrophils # (Auto) 10 ^3/uL (1.6-8.6) Lymphocytes # (Auto) 10 ^3/uL (0.4-5.4) Monocytes # (Auto) 10 ^3/uL (0-1.3) Differential Total Cells Counted 100.0 (100) Neutrophils % (Manual) 78 (37.0-80.0) Band Neutrophils % (Manual) 0 Lymphocytes % (Manual) 9 (10.0-50.0) Monocytes % (Manual) 12 (0-12) Eosinophils % (Manual) 1 (0-7) Basophils % (Manual) 0 (0.0-2.0) Metamyelocytes % (manual) 0 Myelocytes % (Manual) 0 Promyelocytes % (Manual) 0 Blast Cells % (Manual) 0 Reactive Lymphocytes 0 Platelet Estimate Decreased Sodium Level 142 mmol/L (136-145) Potassium Level 4.4 mmol/L (3.5-5.1) Chloride Level 103 mmol/L (98-107) Carbon Dioxide Level 30 mmol/L (20-31) Anion Gap 9 (5-15) Blood Urea Nitrogen 12 mg/dL (9-23) Creatinine 0.79 mg/dL (0.550-1.02) Glomerular Filtration Rate Calc 74 mL/min (>90) BUN/Creatinine Ratio 15.2 (10.0-20.0) Serum Glucose 105 mg/dL (74-106) Calcium Level 10.2 mg/dL (8.7-10.4) Urine Color Light-yellow (Yellow) Urine Clarity Clear (Clear) Urine pH 5.5 (5.0-9.0) Urine Specific [place] 1.011 (1.001-1.035) Urine Protein Negative (Negative) Urine Ketones Negative (Negative) Urine Blood Trace /uL (Negative) Urine Nitrite Negative (Negative) Urine Bilirubin Negative (Negative) Urine Urobilinogen Normal mg/dL (Negative) Urine Leukocyte Esterase Negative /uL (Negative) Urine RBC 1 /hpf (0 - 4) Urine Microscopic WBC 2 /HPF (0-5) Urine Squamous Epithelial Cells Few /hpf (<5) Urine Bacteria None seen /hpf (None Seen) Urine Glucose Normal mg/dL (Normal) Eosinophils (%) (Auto) 0.1 % (0.0-7.0) Eosinophils # (Auto) 0 10 ^3/uL (0-0.8) Basophils # (Auto) 0 10 ^3/uL (0-0.2) Nucleated Red Blood Cells 0.0 % Large Platelets Moderate Giant Platelets Few Other Laboratory Tests 08/17/25 05:23 Brief Hx & Hospital Course: Patient was brought to the hospital on Thursday to undergo a right total knee arthroplasty. She tolerated the procedure well without complications and was kept overnight for postoperative observation. She has remained medically stable denying any overnight events but reports experiencing continued postoperative knee pain that is limiting her ability to remained physically active during her rehabilitation with physical therapy. Patient reports she has slowly been walking further and further but has only been able to get right outside of her door and back to her bed. Patient is otherwise feeling well denying any other complaints or concerns during my evaluation and declined going to a detention facility as she has gone to one before and had a horrible experience and instead would like to go home. We will plan for patient to be discharged home as walking with physical therapy in the morning and in the afternoon today and as long as patient feels well and remains medically stable may be discharged home. Condition at Discharge: Stable Final Diagnosis/Problems List Right knee degenerative arthritis Discharge Disposition: Home Discharge Instruct/Medications Diet: Regular Activity: See Comment Activity comment: Patient instructed to remain weight-bearing as tolerated with the assistance of a walker Follow Up/Referral: Patient instructed to follow up with our office in 10-14 days for her 1st postoperative evaluation. Medications: Rx sent via our outpatient EMR system Miscellaneous Medications Aspirin (Aspir-81), Unknown Dose PO, (Reported) Atorvastatin Calcium (Lipitor), Unknown Dose PO, (Reported) Bethanechol Chloride (Bethanechol Chloride), Unknown Dose PO, (Reported) Cholecalciferol (D3), Unknown Dose PO, (Reported) Cranberry Extract (Cranberry), Unknown Dose PO, (Reported) Cyanocobalamin (B12), Unknown Dose PO, (Reported) Losartan Potassium (Losartan Potassium), Unknown Dose PO, (Reported) Magnesium Lactate (Mag-Tab Sr), Unknown Dose PO, (Reported) Omeprazole (Gnp Omeprazole), Unknown Dose PO, (Reported) Rivaroxaban (Xarelto), Unknown Dose PO, (Reported) Discharge Statement: "Patient was advised to return to the ER or call 911 if any headaches, dizziness, shortness of breath, chest pain, abdominal pain, bleeding, fevers, or worsening of medical condition. Patient was counseled about treatment plan, medications, possible side effects, patientverbalized understanding. All questions were answered to the best of my ability. This discharge took greater then 30 minutes in planning, reviewing documentation, counseling the patient, and discussing with other team members." ASSESSMENT ASSESSMENT Assessment Right knee degenerative arthritis JUAN LUIS TOBAR Aug 18, 2025 07:32
--- NOTE | 2025-08-18 07:34 | DVHPN2 ---
Progress Note - Dictate Date Seen: Aug 18, 2025 Medical Necessity Reason Pt with a Central, PICC or Fol: No Subjective Patient was lying comfortably in bed during my evaluation and reports some continued postoperative knee pain that is somewhat improved with the help of pain medication. Patient reports that she was able to get up and walk with the help of physical therapy and her walker but continues to only be able to take a few steps right outside of her room and back to her bed due to the pain. Patient was otherwise feeling well denying any other complaints or concerns during my evaluation. vital signs Vital Sign Date Time Temp Pulse Resp B/P (MAP) Pulse Ox O2 Delivery O2 Flow Rate FiO2 08/18/25 05:58 138/71 08/18/25 05:05 98.1 64 19 94 98.1 08/17/25 20:00 Room Air* 0 21 Total Intake and Output 08/17/25 08/17/25 08/18/25 15:00 23:00 07:00 Intake Total 600 ml 640 ml Output Total 400 ml Balance 600 ml 240 ml medications Current Medications Medications Dose Ordered Sig/Penny Route Start Time Stop Time Status Last Admin Dose Admin Pantoprazole Sodium 40 mg DAILY@0600 PO 08/16/25 06:00 08/18/25 05:59 40 MG Acetaminophen 650 mg Q4HP PRN PO 08/15/25 14:15 08/15/25 20:05 650 MG Acetaminophen 650 mg Q6HR PO 08/15/25 18:00 08/18/25 05:58 650 MG Pregabalin 50 mg BID PO 08/15/25 22:00 08/17/25 21:17 50 MG Oxycodone HCl 5 mg Q4HP PRN PO 08/15/25 14:15 Oxycodone HCl 10 mg Q4HP PRN PO 08/15/25 15:11 08/17/25 16:11 10 MG Rivaroxaban 10 mg DAILY PO 08/16/25 10:00 08/17/25 09:18 10 MG Sennosides 8.6 mg HS PO 08/16/25 22:00 08/16/25 22:11 8.6 MG Lactulose 30 ml Q6HPRN PRN PO 08/16/25 13:00 08/17/25 16:11 30 ML Losartan Potassium 25 mg QAM PO 08/17/25 07:00 08/18/25 05:58 25 MG objective A&O x4 in no acute distress Knee range of motion grossly limited with pain on movement Rolly dressing clean, dry, intact, and maintaining suction No distal edema or calf tenderness to palpation Neurovascularly intact with cap refill less than 2 seconds laboratory and microbiology Laboratory Tests 08/17/25 05:23 Test 08/17/25 05:23 Range/Units Serum Glucose 105 74-106 mg/dL Assessment/Plan We will plan for discharge home after patient walks with physical therapy in the morning and in the afternoon and patient remains medically stable and otherwise is feeling well. I advised the patient to remain weight-bearing as tolerated with the assistance of a walker and to maintain her dressings clean, dry, intact, and maintaining suction to call our office if she has any remaining questions or concerns. I also advised the patient to follow up with our office for 1st postoperative evaluation in 10-14 days. Rx sent via our outpatient EMR system. Patient understood and agreed. Plan discussed with: Patient JUAN LUIS TOBAR Aug 18, 2025 07:34
--- NOTE | 2025-08-18 20:06 | DVH ---
CHEST RADIOGRAPH Indication: cough Technique: Single frontal view of the chest was obtained Comparison: XR CHEST 1 VIEW on DOS: 08/20/23, XR CHEST 1 VIEW on DOS: 03/03/21, CHEST PORTABLE on DOS: 11/02/20 FINDINGS: Lines and Tubes: None Lungs: No focal consolidation. Pleura: No effusion. No pneumothorax. Cardiomediastinal contours: Unremarkable Bones: No acute osseous abnormality. IMPRESSION: 1. No acute cardiopulmonary disease.
[2025-08-19] VITALS (9 sets, daily range): BP systolic 116–150; BP diastolic 44–90; PULSE 80–97; RESP 18–20; TEMP 98–99.8; O2SAT 92–98
== END 2025-08-19 16:51 | disposition home or self-care (01) | DRG 470 ==
LOC: SUR 10:49 → OVERFLOW 14:07 → CENTRAL 16:38 → TELE-CENTR 08-16 21:53 → CENTRAL 08-16 21:57
PROVIDERS: ADMIT Internal Medicine; ATTEND Internal Medicine
PROC: 0SRC069 Replacement of Right Knee Joint with Oxidized Zirconium on Polyethylene Synthetic Substitute, Cemented, Open Approach (ICD-10-PCS; principal; 2025-08-15 11:31)
DX: M17.11 Unilateral primary osteoarthritis, right knee (principal); E66.9 Obesity, unspecified; I10 Essential (primary) hypertension; Z96.651 Presence of right artificial knee joint; E78.5 Hyperlipidemia, unspecified; Z68.32 Body mass index [BMI] 32.0-32.9, adult; Z80.7 Family history of other malignant neoplasms of lymphoid, hematopoietic and related tissues; Z82.49 Family history of ischemic heart disease and other diseases of the circulatory system
CPT/HCPCS: 36415; 71045; 73562; 80048; 81001; 85007; 85025; 85027; 86850; 86900; 86901; 97110; 97116; 97163; 97530; G0378; J0131; J0169; J2250; J2704; J3490